=== PATIENT | female | born 1990 | race Two or more races ===

== ENCOUNTER 2018-08-19 16:39 | Inpatient (IN) | payer BC, OTHER ==
[2018-09-21] MEDS ORDERED: DINOPROSTONE 10 MG VAGINAL INSERT.SR PV PRN (21:52)
[2018-09-21] MEDS ORDERED: RINGERS SOLUTION,LACTATED 300 ML IV ONE (21:52)
[2018-09-21] MEDS ORDERED: ACETAMINOPHEN 325 MG TABLET PO PRN (21:59)
[2018-09-21] MEDS ORDERED: MAG HYDROX/AL HYDROX/SIMETH SUSP 30 ML UDCUP PO PRN (21:59)
[2018-09-21] MEDS ORDERED: ZOLPIDEM TARTRATE 5 MG TABLET PO SCH (22:00)
[2018-09-21 22:29] LABS: ABSOLUTE EOSINOPHILS # (AUTO) 0.1 10^3/uL (0.0-0.6); ABSOLUTE LYMPHOCYTES (AUTO) 2.2 10^3/uL (0.5-4.7); ABSOLUTE NEUT (AUTO) 7.8 10^3/uL (1.7-8.2); BASOPHILS % (AUTO) 0.3 % (0-2); EOSINOPHILS % (AUTO) 0.7 % (0-6); HEMATOCRIT 33.5 % (36.0-47.0); HEMOGLOBIN 11.2 g/dL (12.0-15.5); LYMPHOCYTES % (AUTO) 19.9 % (13-45); MEAN CORPUSCULAR HEMOGLOBIN 30.2 pg (27.0-33.4); MEAN CORPUSCULAR HGB CONC 33.4 g/dL (32.0-36.0); MEAN CORPUSCULAR VOLUME 90 fl (80-97); MONOCYTES % (AUTO) 9.1 % (3-13); PLATELET COUNT 285 10^3/uL (150-450); RED CELL DISTRIBUTION WIDTH 13.6 % (11.5-14.0); TOTAL CELLS COUNTED % (AUTO) 100 %; WHITE BLOOD COUNT 11.1 10^3/uL (4.0-10.5)
[2018-09-21 22:31] LABS: APPEARANCE,URINE CLOUDY; BILIRUBIN,URINE NEGATIVE (NEGATIVE); COLOR,URINE YELLOW; GLUCOSE, URINE NEGATIVE (NEGATIVE); KETONES,URINE NEGATIVE (NEGATIVE); LEUKOCYTE ESTERASE,URINE TRACE (NEGATIVE); NITRITE,URINE NEGATIVE (NEGATIVE); PROTEIN,URINE NEGATIVE (NEGATIVE); URINE SPECIFIC GRAVITY 1.013; UROBILINOGEN,URINE NEGATIVE mg/dL (<2.0)
[2018-09-21] MEDS ORDERED: MISOPROSTOL 0.2 MG TABLET ONE (22:43)
[2018-09-21] MEDS ORDERED: OXYTOCIN/NORMAL SALINE 20 UNIT/1,000 ML RTUINJ ONE (22:43)
[2018-09-21] MEDS ORDERED: OXYTOCIN 10 UNIT/ML VIAL ONE (22:43)
[2018-09-21] MEDS ORDERED: DINOPROSTONE 10 MG VAGINAL INSERT.SR ONE (22:43)
[2018-09-21] MEDS ORDERED: LIDOCAINE 1% INJ-PF (10 MG/ML) 30 ML SDV ONE (22:43)
[2018-09-21 22:47] LABS: URINE AMPHETAMINES SCREEN NEGATIVE; URINE BARBITURATES SCREEN NEGATIVE; URINE BENZODIAZEPINES SCREEN NEGATIVE; URINE COCAINE SCREEN NEGATIVE; URINE MARIJUANA (THC) SCREEN NEGATIVE; URINE METHADONE SCREEN NEGATIVE; URINE PHENCYCLIDINE SCREEN NEGATIVE
[2018-09-21] MEDS: RINGERS SOLUTION,LACTATED 1,000 ML IV PRN (22:56)
[2018-09-22] MEDS ORDERED: NALBUPHINE HCL INJ 10 MG/1 ML AMPULE INJ ONE (11:20)
[2018-09-22] MEDS ORDERED: NALBUPHINE HCL INJ 10 MG/1 ML AMPULE ONE (11:28)
[2018-09-22] MEDS ORDERED: OXYTOCIN/NORMAL SALINE 20 UNIT/1,000 ML RTUINJ IV PRN (13:28)
[2018-09-22] MEDS ORDERED: EPHEDRINE SULFATE INJ 50 MG/1 ML AMPULE ONE (17:04)
[2018-09-22] MEDS ORDERED: FENTANYL/BUPIVACAINE/NS/PF 300 MCG/150 ML RTUINJ EPI ONE (17:05)
[2018-09-22] MEDS ORDERED: BUPIVACAINE HCL 0.25 % INJ/PF (2.5 MG/1 ML) 30 ML VIAL ONE (17:05)
[2018-09-22] MEDS ORDERED: LIDOCAINE 1.5%/EPINEPHRINE INJ-PF 30 ML SDV ONE (17:05)
[2018-09-22] MEDS: RINGERS SOLUTION,LACTATED 1,000 ML IV PRN (20:06)
[2018-09-23] MEDS: RINGERS SOLUTION,LACTATED 1,000 ML IV PRN (01:25)
[2018-09-23] MEDS ORDERED: ACETAMINOPHEN 325 MG TABLET ONE (01:47)
[2018-09-23] MEDS ORDERED: MEASLES,MUMPS&RUBELLA VACC/PF 0.5 ML VIAL SUBCUT PRN (04:10)
[2018-09-23] MEDS ORDERED: ACETAMINOPHEN WITH CODEINE #3 TABLET PO PRN ×2 (04:10)
[2018-09-23] MEDS ORDERED: OXYTOCIN/NORMAL SALINE 20 UNIT/1,000 ML RTUINJ IV PRN (04:10)
[2018-09-23] MEDS ORDERED: BENZOCAINE/MENTHOL AEROSOL SPRAY 56 ML TOP PRN (04:10)
[2018-09-23] MEDS ORDERED: DIBUCAINE 1% OINTMENT 28 GM TP PRN (04:10)
[2018-09-23] MEDS ORDERED: GLYCERIN/WITCH HAZEL LEAF 1 EACH MED..PAD TP PRN (04:10)
[2018-09-23] MEDS ORDERED: MAGNESIUM HYDROXIDE SUSP 30 ML UDCUP PO PRN (04:10)
[2018-09-23] MEDS ORDERED: PSEUDOEPHEDRINE HCL 30 MG TABLET PO PRN (04:10)
[2018-09-23] MEDS ORDERED: PROMETHAZINE HCL 25 MG TABLET PO PRN (04:10)
[2018-09-23] MEDS ORDERED: PROMETHAZINE HCL 25 MG SUPP.RECT PR PRN (04:10)
[2018-09-23] MEDS ORDERED: PROMETHAZINE HCL INJ 25 MG/1 ML VIAL IV PRN (04:10)
[2018-09-23] MEDS ORDERED: ZOLPIDEM TARTRATE 5 MG TABLET PO PRN (04:10)
[2018-09-23] MEDS ORDERED: DIPHENHYDRAMINE HCL 25 MG CAPSULE PO PRN (04:10)
[2018-09-23] MEDS ORDERED: DIPH/PERTUSS(ACELL)/TETANUS VAC/PF 0.5 ML SYR (>=10YO) IM PRN (04:10)
[2018-09-23] MEDS ORDERED: ACETAMINOPHEN 650 MG SUPP.RECT PR PRN (04:10)
[2018-09-23] MEDS ORDERED: NA PHOS,M-B/NA PHOS,DI-BA (ADULT) 133 ML ENEMA PR PRN (04:10)
[2018-09-23] MEDS ORDERED: SENNOSIDES/DOCUSATE 8.6-50 MG 1 EACH TABLET ONE ×2 (09:03→09:05)
[2018-09-23] MEDS ORDERED: PRENATAL VITAMIN W DHA CAPSULE PO ONE (09:03)
[2018-09-23] MEDS ORDERED: FERROUS SULFATE 325 MG TABLET PO ONE (09:04)
[2018-09-23] MEDS ORDERED: DOCUSATE SODIUM 100 MG CAPSULE ONE (09:04)
[2018-09-23] MEDS ORDERED: FAMOTIDINE 20 MG TABLET ONE (09:04)
[2018-09-23] MEDS ORDERED: IBUPROFEN 800 MG TABLET ONE (09:04)
[2018-09-23] MEDS: DOCUSATE SODIUM 100 MG CAPSULE PO SCH ×2 (09:10→18:17)
[2018-09-23] MEDS: FERROUS SULFATE 325 MG TABLET PO SCH ×2 (09:11→18:17)
[2018-09-23] MEDS: IBUPROFEN 800 MG TABLET PO SCH ×3 (09:11→21:49)
[2018-09-23] MEDS: PRENATAL VITAMIN W DHA CAPSULE PO SCH (09:12)
[2018-09-23] MEDS: FAMOTIDINE 20 MG TABLET PO SCH ×2 (09:12→21:48)
[2018-09-23] MEDS: SENNOSIDES/DOCUSATE 8.6-50 MG 1 EACH TABLET PO SCH (09:18)
[2018-09-24] MEDS: IBUPROFEN 800 MG TABLET PO SCH ×3 (06:11→22:57)
[2018-09-24 08:23] LABS: HEMATOCRIT 30.8 % (36.0-47.0); HEMOGLOBIN 10.4 g/dL (12.0-15.5); MEAN CORPUSCULAR HEMOGLOBIN 31.1 pg (27.0-33.4); MEAN CORPUSCULAR HGB CONC 33.8 g/dL (32.0-36.0); MEAN CORPUSCULAR VOLUME 92 fl (80-97); PLATELET COUNT 222 10^3/uL (150-450); RED BLOOD COUNT 3.35 10^6/uL (3.72-5.28); RED CELL DISTRIBUTION WIDTH 13.9 % (11.5-14.0); WHITE BLOOD COUNT 10.5 10^3/uL (4.0-10.5)
--- NOTE | 2018-09-24 09:03 | PDOC DISCHARGE SUMMARY ---
Addendum entered and electronically signed by NASRA TO CNM 09/25/18 09:27: Final Diagnosis Discharge Date: 09/25/18 - Final Diagnosis (1) Intrauterine growth restriction (IUGR) affecting care of mother Is this a current diagnosis for this admission?: Yes (2) Vaginal delivery Is this a current diagnosis for this admission?: Yes Original Note: Final Diagnosis Discharge Date: 09/24/18 - Final Diagnosis (1) Intrauterine growth restriction (IUGR) affecting care of mother Is this a current diagnosis for this admission?: Yes (2) Vaginal delivery Is this a current diagnosis for this admission?: Yes Discharge Data - Discharge Medication Home Medications: Iron,Carb/Vit C/Vit B12/Folic [Iron 100 Plus Tablet] 1 each PO Q2DAYS 09/13/18 Vits96/Iron Fum/Folic [ Tablet] 1 tab PO DAILY 09/13/18 Reason(s) for Admission: Induction of Labor Procedures: NST Intrapartum Procedure(s): Spontaneous Vaginal Delivery - Diagnosis Test Laboratory: Temp Pulse Resp BP Pulse Ox 98.6 F 73 16 137/75 H 97 09/23/18 19:32 09/23/18 19:32 09/23/18 19:32 09/23/18 19:32 09/23/18 19:32 09/21/18 09/21/18 09/24/18 21:57 22:17 07:49 RBC 3.70 L 3.35 L Hgb 11.2 L 10.4 L Hct 33.5 L 30.8 L Urine Opiates Screen NEGATIVE - Discharge information/Instructions Discharge Activity: Balance Activity w/Rest, Pelvic Rest Discharge Diet: Regular Disposition: HOME, SELF-CARE Follow up with: [facility] in: 4, Weeks
--- NOTE | 2018-09-24 09:26 | Admission Physical ---
Datetime Report Generated by CPN: 09/24/2018 09:26 CURRENT ADMISSION Chief Complaint: Scheduled Induction of Labor Indication for Induction: IUGR Admit Impression : Term, Intrauterine ; No Active Labor Admit Plan: Admit to Unit; Initiate Labor Induction Protocol ALLERGIES Medication Allergies: No Medication Allergies: No Known Allergies (09/13/2018) Latex: No Latex Allergies OBSTETRICAL HISTORY EDC: 09/23/2018 00:00 : 1 Para: 0 Term: 0 : 0 SAB: 0 IAB: 0 Ectopic: 0 Livin Cesareans: 0 VBACs: 0 Multiple Births: 0 Gestational Diabetes: No Rh Sensitization: No Incompetent Cervix: No NAYANA: No Infertility: No ART Treatment: No Uterine Anomaly: No IUGR: Yes Hx Previous C/S: No Macrosomia: No Hx Loss/Stillborn: No PIH: No Hx : No Placenta Previa/Abruption: No Depression/PP Depression: No PTL/PROM: No Post Hemorrhage: No Current Procedures: Ultrasound; NST Obstetrical History Comments: G1-Current Had IUGR during this /now in 18th percentile. SEE RECORDS Alcohol: No Marijuana : No Cocaine: No Other Illicit Drugs: No Cigarettes: Never Smoker. 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 Surgery: No Heart Disease: No Hosp/Surgery: No Autoimmune Disorder: No Anesthetic Complications: No Kidney Disease: No Abnormal Pap Smear: No Neuro/Epilepsy: No Psychiatric Disorders: No Other Medical Diseases: Yes Hepatitis/Liver Disease: No Significant Family History: No Varicosities/Phlebitis: No Trauma/Violence : No Thyroid Dysfunction: No Medical History Comments: Migraines-caffiene withdrawl; INFECTIOUS HISTORY Gonorrhea: No Genital Herpes: No Chlamydia: No Tuberculosis: No Syphilis: No Hepatitis: No HIV/AIDS Exposure: No Rash or Viral Illness: No HPV: No PHYSICAL EXAM General: Normal HEENT: Normal Neurologic: Normal Thyroid: Normal Heart: Normal Lungs: Normal Breast: Normal Back: Normal Abdomen: Normal Genitourinary Exam: Normal Extremities: Normal DTRs: Normal Pelvic Type: Adequate Vital Signs: Reviewed; Within Normal Limits VAGINAL EXAM Dilatation: 6 Dilatation: 5 Dilatation: 1 Effacement: 75 Effacement: 70 Effacement: thick Station: -1 Station: -2 Station: -3 Contraction Comments: Q2 Contraction Comments: Q2 Contraction Comments: none MEMBRANES Membranes: Intact FETUS A EGA: 39.6 Monitoring: External US FHR- Baseline: 130-140s Decelerations: None FHR Category: Category I Admit Comment: Cervidil PLANS FOR LABOR AND DELIVERY Labor and Delivery: None Pain Management: Epidural Feeding Preference: Breast Benefit of Breast Feed Discussed: Yes Circumcision: N/A INFORMED CONSENT Informed Consent Obtained: Vaginal Delivery; Induction of Labor; Risks, Benefits and Alternatives Discussed Informed Consent Obtained: Vaginal Delivery; Induction of Labor; Risks, Benefits and Alternatives Discussed Signature: with User ID: [email or web address]
--- NOTE | 2018-09-24 09:31 | Delivery Summary ---
Del Sum A-C Datetime Report Generated by CPN: 09/24/2018 09:31 DELIVERY PERSONNEL DELIVERY PERSONNEL: [id number] Delivery Doctor:: Anu Sullivan MD Labor and Delivery Nurse:: Sofia Verma RNrn labor delivery Nurse:: Halima Bradley RN Nursery Nurse:: Halima Mcclain RN MATERNAL INFORMATION Delivery Anesthesia: Epidural Medications After Delivery: Pitocin Drip 20 Units/1000ml NSS Maternal Complications: None Provider Comments: VFI delivered in JONI presentation. Tight nuchal cord delivered through. Shoulders and body delivered without difficulty. Cord doubly clamped and cut and infant to maternal abdomen with spontaneous cry. Placenta delivered intact spontaneously. FF at U. No perineal lacerations. Mother and baby stable upon provider leaving the room. LABOR SUMMARY EDC: 09/23/2018 00:00 No. Babies in Womb: 0 Labor Anesthesia: Epidural LABOR INFORMATION Reason for Induction: Intrauterine Growth Retardation Reason for Induction- Other: [facility] recommended delivery at 39wks due to EFW 18% Onset of Labor: 09/22/2018 19:19 Complete Dilatation: 09/23/2018 03:01 Cervical Ripening Agents: Cervidil; Scott Balloon Cervical Ripening Agents: Scott Balloon Cervical Ripening Agents: Cervidil Cervical Ripening Agents: Cervidil Oxytocin: Induction Group B Beta Strep: Negative Antibiotics # of Doses: 0 Antibiotics Time of Last Dose: N/A Name of Antibiotic Given: N/A Steroids Given: None Reason Steroids Not Administered: Not Applicable MEMBRANES Membranes Rupture Method: Artificial Rupture of Membranes: 09/22/2018 19:19 Length of Rupture (hr): 8.63 Amniotic Fluid Color: Clear Amniotic Fluid Amount: Small Amniotic Fluid Odor: Normal STAGES OF LABOR Stage 1 hr: 7 Stage 1 min: 42 Stage 2 hr: 0 Stage 2 min: 56 Stage 3 hr: 0 Stage 3 min: 3 Total Time in Labor hr: 8 Total Time in Labor min: 41 VAGINAL DELIVERY Episiotomy: None Laceration #1: None Laceration Extension #1: N/A Laceration Repair: Not Applicable Sponge Count Correct: Yes Sharps Count Correct: Yes CSECTION DELIVERY Primary Indication: N/A Secondary Indication: N/A CSection Incidence: N/A Labor: N/A Elective: N/A CSection Incision: N/A BABY A INFORMATION Delivery Date/Time: 09/23/2018 03:57 Method of Delivery: Vaginal Method of Delivery: Vaginal Born in Route : No : N/A Forceps: N/A Vacuum Extraction: N/A Shoulder Dystocia : No PRESENTATION/POSITION BABY A Presentation: Cephalic Cephalic Presentation: Vertex Vertex Position: Left Occipital Anterior Breech Presentation: N/A PLACENTA INFORMATION BABY A Placenta Delivery Time : 09/23/2018 04:00 Placenta Method of Delivery: Spontaneous Placenta Method of Delivery: Spontaneous Placenta Status: Delivered SCORES BABY A Heart Rate 1 min: >100 bpm Resp Effort 1 min: Good Cry Reflex Irritability 1 min: Cough or Sneeze or Pulls Away Muscle Tone 1 min: Active Motion Color 1 min: Body [place], Extremities Blue Resuscitation Effort 1 min: Tactile Stimulation SCORE 1 MIN: 9 Heart Rate 5 min: >100 bpm Resp Effort 5 min: Good Cry Reflex Irritability 5 min: Cough or Sneeze or Pulls Away Muscle Tone 5 min: Active Motion Color 5 min: Body [place], Extremities Blue Resuscitation Effort 5 min: N/A SCORE 5 MIN: 9 INFORMATION BABY A Gestational Age at Delivery: 40.0 Gestational Status: Full Term- 39- 40.6 Weeks Outcome : Liveborn Infant Condition : Stable Sex: Female Infant Sex: Female IDENTIFICATION BABY A Verification Date/Time: 09/23/2018 04:08 ID Band Number: [id number] Mother's Name Verified: Yes RN Verifying Infant: Evon Verma RN Additional Verifying Personnel: S. Houserie ST WEIGHT/LENGTH BABY A Birthweight (gm): 3075 Infant Weight (lb): 6 Infant Weight (oz): 12 Infant Length (in): 19.00 Length (cm): 48.26 CORD INFORMATION BABY A No. Cord Vessels: 3 Nuchal Cord : Around Neck x1, Tight Cord Blood Taken: Yes-For Eval (Mom's Blood Type - or O+) Infant Suction: None BABY B INFORMATION : N/A SIGNATURES Signature: with User ID: [email or web address]
[2018-09-24] MEDS: PRENATAL VITAMIN W DHA CAPSULE PO SCH (10:27)
[2018-09-24] MEDS: FERROUS SULFATE 325 MG TABLET PO SCH ×2 (10:27→17:50)
[2018-09-24] MEDS: FAMOTIDINE 20 MG TABLET PO SCH ×2 (10:27→22:57)
[2018-09-24] MEDS: SENNOSIDES/DOCUSATE 8.6-50 MG 1 EACH TABLET PO SCH (10:27)
[2018-09-24] MEDS: DOCUSATE SODIUM 100 MG CAPSULE PO SCH ×2 (10:27→17:50)
[2018-09-25] MEDS: IBUPROFEN 800 MG TABLET PO SCH (06:21)
[2018-09-25] MEDS: PRENATAL VITAMIN W DHA CAPSULE PO SCH (10:26)
[2018-09-25] MEDS: DOCUSATE SODIUM 100 MG CAPSULE PO SCH (10:26)
[2018-09-25] MEDS: SENNOSIDES/DOCUSATE 8.6-50 MG 1 EACH TABLET PO SCH (10:26)
[2018-09-25] MEDS: FERROUS SULFATE 325 MG TABLET PO SCH (10:26)
[2018-09-25] MEDS: FAMOTIDINE 20 MG TABLET PO SCH (10:26)
--- NOTE | 2018-09-25 11:14 | PDOC PROGRESS REPORT ---
Subjective-OB Progress Note for:: 09/25/18 Subjective: Pt doing well. No concerns. Reports light bleeding, reg diet and voiding without difficulty. Ready to go home today. Physical Exam (OB) Vital Signs: Temp Pulse Resp BP Pulse Ox 98.5 F 70 16 116/67 96 09/25/18 07:49 09/25/18 07:49 09/25/18 07:49 09/25/18 07:49 09/25/18 07:49 Intake & Output 09/24/18 09/25/18 09/26/18 06:59 06:59 06:59 Intake Total 500 Balance 500 - PIH/Pre-Eclampsia DTR's: 1 + Clonus: Negative Headache: Absent Epigastric Pain: No Visual Changes: No - Lochia Lochia Amount: Small 10-25 ml Lochia Color: Rubra/Red - Abdomen Description: Soft, Round Hernia Present: No Fundal Description: Firm, Midline Fundal Height: u/u - u/2 Objective-Diagnostic Laboratory: 09/24/18 07:49 Assessment and Plan(PN) - Assessment and Plan (1) Intrauterine growth restriction (IUGR) affecting care of mother Qualifiers: Fetus number: single or unspecified fetus Trimester: third trimester Qualified Code(s): O36.5930 - Maternal care for other known or suspected poor growth, third trimester, not applicable or unspecified Is this a current diagnosis for this admission?: Yes (2) Vaginal delivery Is this a current diagnosis for this admission?: Yes - Time Spent with Patient Time with patient: Less than 15 minutes Medications reviewed and adjusted accordingly: Yes - Disposition Anticipated Discharge: Home Within: within 24 hours
[2018-09-25 11:22] VITALS: BP 127/67
== END 2018-09-25 12:38 | disposition home or self-care (01) | DRG 807 ==
LOC: LR 09-21 21:44 → 2S 09-23 12:33
PROVIDERS: ADMIT Obstetrics & Gynecology; ATTEND Student in an Organized Health Care Education/Training Program
PROC: 3E0P7VZ Introduction of Hormone into Female Reproductive, Via Natural or Artificial Opening (ICD-10-PCS; 2018-09-21)
PROC: 10E0XZZ Delivery of Products of Conception, External Approach (ICD-10-PCS; principal; 2018-09-23)
PROC: 4A1HXCZ Monitoring of Products of Conception, Cardiac Rate, External Approach (ICD-10-PCS; 2018-09-23)
DX: O36.5930 Maternal care for other known or suspected poor fetal growth, third trimester, not applicable or unspecified (principal); O69.81X0 Labor and delivery complicated by cord around neck, without compression, not applicable or unspecified; Z37.0 Single live birth; Z3A.39 39 weeks gestation of pregnancy
CPT/HCPCS: 36415; 80307; 81005; 85025; 85027; 86592; 86850; 86900; 86901; 88307; 94760; J2300; J2590; J3010; J3490

== ENCOUNTER 2018-09-13 10:20 | Outpatient (CLI) | payer BC, OTHER ==
--- NOTE | 2018-09-13 11:50 | Non Stress Test Report ---
Non Stress Test Datetime Report Generated by CPN: 09/13/2018 11:49 DEMOGRAPHIC EGA NST: 38.4 INDICATION Indication for Study: Ordered by Provider; Other Indication for Study (NST) Other: repeat NST MONITORING Monitor Explained: Monitor Explained; Test Explained; Patient Verbalized Understanding Time on Monitor: 09/13/2018 10:37 Time off Monitor: 09/13/2018 10:59 NST Duration: 22 NST INTERVENTIONS NST Interventions: PO Hydration Physician Notified NST: Dr. Sullivan BABY A: [id number] BABY A Movement : Present Contraction Frequency : none FHR Baseline : 150 Accelerations : 15X15 Decelerations : None Variability : Moderate 6-25bpm NST Review: Meets Criteria for Reactive NST NST Review and Verified By : MAIRA Ramirez Results: Reactive NST REPORT Report Trigger: Send Report
== END 2018-09-13 11:06 | disposition home or self-care (01) ==
LOC: LC 10:20
PROVIDERS: ATTEND Student in an Organized Health Care Education/Training Program
PROC: 4A1HXCZ Monitoring of Products of Conception, Cardiac Rate, External Approach (ICD-10-PCS; principal; 2018-09-13)
DX: Z34.83 Encounter for supervision of other normal pregnancy, third trimester (principal)
CPT/HCPCS: 59025